=== PATIENT | female | born 1950 ===

== ENCOUNTER 2023-12-23 10:52 | Outpatient (CLI) | payer MEDICARE, SELFPAY ==
--- NOTE | ~2023-12-23 | CT_ITS ---
EXAMINATION: CTA chest PE protocol DATE: 12/23/2023 11:28 INDICATION: Shortness of breath. TECHNIQUE: Computed tomography angiography (CTA) of the chest was performed with 100 mL Omnipaque-350 intravenous contrast timed to evaluate the pulmonary arteries. Coronal maximum intensity projection 3D-reconstructions were created by the technologist. Automated exposure control and iterative reconst ruction technique were employed. The dose-length product was 574.50 mGy-cm. COMPARISON: None. FINDINGS: The lungs demonstrate mild atelectasis. There are airspace opacities and centrilobular nodu les in left lower lobe. There are centrilobular nodules and airspace opacities in left upper lobe. Th ere are small pleural effusions, left worse than right. The heart size is normal. No pericardial effu anthony. There is no pulmonary embolus. There is thoracic levoscoliosis and severe spondylosis. IMPRESSION: 1. No pulmonary embolus. 2. Pneumonia in left upper lobe and left lower lobe. 3. Small pleural effusions. Reviewed, dictated and finalized at location A.
[2023-12-23 11:24] LABS: Estimated Glomerular Filt Rate 44
== END 2023-12-23 10:53 | disposition home or self-care (01) ==
LOC: ANHIMG 10:57
PROVIDERS: Visit Provider Internal Medicine
DX: R79.1 Abnormal coagulation profile (principal); J90 Pleural effusion, not elsewhere classified; J18.9 Pneumonia, unspecified organism
CPT/HCPCS: 71275; Q9967